=== PATIENT | female | born 1990 | race Hispanic/Latino ===

== ENCOUNTER 2021-06-06 10:19 | Outpatient (CLI) | payer MEDICAID ==
--- NOTE | 2021-06-06 12:14 | Vascular Lab Report ---
DUPLEX DOPPLER LOWER EXTREMITY VEINS, BILATERAL INDICATION / CLINICAL INFORMATION: EDEMA OF LOWER EXTREMITY /R60.0. TECHNIQUE: Duplex doppler imaging was performed through the veins of both lower extremities using venous nigel laverne and other maneuvers. COMPARISON: None available. FINDINGS: Right Common Femoral vein: Negative. Right Femoral vein: Negative. Right Popliteal vein: Negative. Right Calf veins: Negative. Left Common Femoral vein: Negative. Left Femoral vein: Negative. Left Popliteal vein: Negative. Left Calf veins: Negative. Additional findings: None. IMPRESSION: 1. No sonographic evidence for DVT in either lower extremity. Signer Name: Gregor Byrne MD Signed: 06/06/2021 12:10 PM Workstation Name: [id number]
== END 2021-06-06 10:20 | disposition home or self-care (01) ==
LOC: VAS 10:19
PROVIDERS: ATTEND Obstetrics & Gynecology
DX: R60.0 Localized edema (principal); O09.893 Supervision of other high risk pregnancies, third trimester; Z3A.38 38 weeks gestation of pregnancy
CPT/HCPCS: 93970

== ENCOUNTER 2021-06-11 11:52 | Inpatient (IN) | payer MEDICAID ==
[2021-06-11 13:41] LABS: Hematocrit 33.3 % (30.3-42.9); Hemoglobin 11.3 gm/dl (10.1-14.3); Mean Corpuscular HGB Conc 34 % (30-34); Mean Corpuscular Volume 91 fl (79-97); Platelet Count 244 K/mm3 (140-440); Red Blood Count 3.67 M/mm3 (3.65-5.03); Red Cell Distribution Width 13.5 % (13.2-15.2)
[2021-06-11 14:01] LABS: Alanine Aminotransferase 12 units/L (7-56); Uric Acid 3.5 mg/dL (3.5-7.6)
[2021-06-11] MEDS ORDERED: miSOPROStol 200 MCG TAB PR PRN (16:06)
[2021-06-11] MEDS ORDERED: ePHEDrine SULFATE 50 MG/1 ML INJ IV PRN ×2 (16:06→19:12)
[2021-06-11] MEDS ORDERED: CARBOPROST TROMETHAMINE 250 MCG/1 ML INJ IM PRN (16:06)
[2021-06-11] MEDS ORDERED: LIDOCAINE (2%) 20 MG/1 ML VIAL 20 ML MDV INFILTRATI ONE (16:06)
[2021-06-11] MEDS ORDERED: LOPERAMIDE 2 MG CAP PO PRN (16:06)
[2021-06-11] MEDS ORDERED: ONDANSETRON 4 MG/2 ML INJ IV PRN (16:06)
[2021-06-11] MEDS ORDERED: BUTORPHANOL 2 MG/1 ML INJ IV PRN ×2 (16:06)
[2021-06-11] MEDS ORDERED: TERBUTALINE 1 MG/1 ML INJ SUB-Q PRN (16:06)
[2021-06-11] MEDS ORDERED: METHYLERGONOVINE MALEATE 0.2 MG/ML VIAL IM PRN (16:06)
[2021-06-11] MEDS ORDERED: MINERAL OIL 30 ML ORAL LIQD PO PRN (16:06)
[2021-06-11] MEDS ORDERED: OXYTOCIN 10 UNIT/1 ML INJ IM PRN (16:06)
[2021-06-11] MEDS ORDERED: ACETAMINOPHEN 325 MG TAB PO PRN (16:06)
[2021-06-11] MEDS ORDERED: fentaNYL 100 MCG/2 ML INJ IV PRN (16:06)
--- NOTE | 2021-06-11 16:33 | History and Physical Report ---
History of Present Illness Date of examination: 06/11/21 Date of admission: 06/11/21 11:53 Chief complaint: Contractions History of present illness: EDC Confirmation: 06/10/2021 Past History : 1 Term Births: 0 Premature Births: 0 Living Children: 0 Para: 0 Mult. Births: 0 Prev : 0 Aborta: 0 Elect. Ab: 0 Spont. 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 Denies any history of surgical complications. Family History Summary: PGM - Has Family History of Hypertension - Entered On: 01/03/2021 PGM - Has Family History of Coronary Heart Disease - Entered On: 01/03/2021 MGF - Has Family History Coronary Heart Disease male < 55 - Entered On: Uncle - Has Family History Coronary Heart Disease male < 55 - Entered On: 01/03/2021 Social History: Patient is single Smoking History: Patient is a former smoker. Past Medical History Anesthesia Complications: negative Anemia: negative Autoimmune Disorder: negative Bleeding Disorder: negative Blood Transfusions: negative Breast Disease: negative Diabetes: negative Heart Disease: negative Hypertension: negative Hepatitis/Liver Disease: negative Kidney Disease/UTI: negative Neurologic/Epilepsy/Migraines: negative Phlebitis/Varicosities: negative Psychiatric: negative Pulmonary Disease/Asthma: negative Thyroid Disease: negative Hospitalizations: negative Surgery (Non-custody assistant): Tonsillectomy as child Denies any prior history of complications from anesthesia. Denies any history of surgical complications. Abnormal PAP: negative VIRAJ Exposure: negative Infertility: negative Uterine Anomaly: negative Uterine Surgery (not C/S): negative Other Gynecologic Problems: negative Social Hx: Patient is single Smoking History: Patient is a former smoker. Infection History Hx of STD: none HIV Risk Eval: no Hepatitis B Risk Eval: low risk Personal hx. of genital herpes: no Partner hx. of genital herpes: no Rash, Viral, or Febrile illness since last LMP? no Varicella/Chicken Pox Status: Previous Disease TB Risk: no Genetic History Congenital Heart Defect: Mom: no Dad: no Trae Disease: Mom: no Dad: no Thalassemia Mom: no Dad: no Neural Tube Defect Mom: no Dad: no Down's Syndrome Mom: no Dad: no Myron-Sachs Mom: no Dad: no Sickle Cell Disease/Trait Mom: no Dad: no Hemophilia Mom: no Dad: no Muscular Dystrophy Mom: no Dad: no Cystic Fibrosis Mom: no Dad: no [place] Chorea Mom: no Dad: no Mental Retardation Mom: no Dad: no Fragile X Mom: no Dad: no Other Genetic/Chromosomal Disorder Mom: no Dad: no Child w/other defect Mom: no Dad: no Enviromental Exposures Enviromental Exposures Reviewed Xray Exposure: no Medication, drug, or alcohol use since LMP: no Chemical/Other Exposure: no Exposure to Cat Liter: no Hx of Parvovirus (Fifth Disease): no Occupational Exposure to Children: none Active Medications (reviewed today): None Current Allergies (reviewed today): No known allergies Past History Past Medical History: other (See HPI) Past Surgical History: other (See HPI) GIFT MANAGER History: other (See HPI) Family/Genetic History: other (See HPI) Social history: other (See HPI) - Obstetrical History Expected Date of Delivery: 06/10/21 Actual Gestation: 40 Week(s) 1 Day(s) : 1 Para: 0 Hx # Term Pregnancies: 0 Number of Pregnancies: 0 Spontaneous Abortions: 0 Induced : 0 Number of Living Children: 0 Medications and Allergies Allergies Allergy/AdvReac Type Severity Reaction Status Date / Time No Known Allergies Allergy Unverified 06/11/21 12:04 Active Meds: Active Medications Acetaminophen (Acetaminophen 325 Mg Tab) 650 mg PO Q4H PRN PRN Reason: Pain, Mild (1-3) Butorphanol Tartrate (Butorphanol 2 Mg/1 Ml Inj) 1 mg IV Q2H PRN PRN Reason: Pain, Moderate(4-6) LABOR PAIN Butorphanol Tartrate (Butorphanol 2 Mg/1 Ml Inj) 2 mg IV Q2H PRN PRN Reason: Pain , Severe (7-10) Carboprost Tromethamine (Carboprost Tromethamine 250 Mcg/1 Ml Inj) 250 mcg IM ONCE PRN PRN Reason: Uterine Bleeding Ephedrine Sulfate (Ephedrine Sulfate 50 Mg/1 Ml Inj) 10 mg IV Q2M PRN PRN Reason: Hypotension Fentanyl (Fentanyl 100 Mcg/2 Ml Inj) 100 mcg IV Q2H PRN PRN Reason: Pain,Severe (7-10) LABOR PAIN Oxytocin/Sodium Chloride (Pitocin/Ns 30 Unit/500ml) 30 units in 500 mls @ 2 mls/hr IV TITR MERLY; Protocol Lactated Ringer's (Lactated Ringers) 1,000 mls @ 125 mls/hr IV DIRECT MERLY Oxytocin/Sodium Chloride (Pitocin/Ns 30 Unit/500ml) 30 units in 500 mls @ 40 mls/hr IV TITR MERLY; Protocol Loperamide HCl (Loperamide 2 Mg Cap) 2 mg PO ONCE PRN PRN Reason: give with Hemabate Methylergonovine Maleate (Methylergonovine Maleate 0.2 Mg/Ml Vial) 0.2 mg IM ONCE PRN PRN Reason: Uterine Bleeding Mineral Oil (Mineral Oil 30 Ml Oral Liqd) 30 ml PO QHS PRN PRN Reason: Constipation Misoprostol (Misoprostol 200 Mcg Tab) 800 mcg FL ONCE PRN PRN Reason: Uterine Bleeding Ondansetron HCl (Ondansetron 4 Mg/2 Ml Inj) 4 mg IV Q8H PRN PRN Reason: Nausea And Vomiting Oxytocin (Oxytocin 10 Unit/1 Ml Inj) 10 unit IM ONCE PRN PRN Reason: Uterine Bleeding Terbutaline Sulfate (Terbutaline 1 Mg/1 Ml Inj) 0.25 mg SUB-Q ONCE PRN PRN Reason: Hyperstimulation/Hypertonicity Review of Systems All systems: negative - Vital Signs Vital signs: Vital Signs Pulse BP 75 146/89 06/11/21 12:16 06/11/21 12:16 Temp Pulse Resp BP Pulse Ox 98.3 F 81 20 139/66 99 06/11/21 12:37 06/11/21 16:22 06/11/21 12:37 06/11/21 15:38 06/11/21 16:22 - Physical Exam Cardiovascular: Regular rate Lungs: Positive: Normal air movement Abdomen: Positive: normal appearance, soft Genitourinary (Female): Positive: normal external genitalia, normal perenium Vulva: both: normal Vagina: Positive: normal moisture Uterus: Positive: normal size - Obstetrical FHR: auscultation normal, category 1 Uterine Contraction Monitor Mode: External Cervical Dilatation: 1.5 Cervical Effacement Percentage: 90 station: 0 Uterine Contraction Frequency (min): 4-6 Uterine Contraction Pattern: Regular Uterine Tone Measurement Phase: Contraction Uterine Contraction Intensity: Moderate Results Result Diagrams: 06/11/21 13:11 06/11/21 13:11 Abnormal lab results 06/11/21 06/11/21 Range/Units 13:11 13:11 WBC 13.1 H (4.5-11.0) K/mm3 Creatinine 0.4 L (0.6-1.2) mg/dL All other labs normal. Assessment and Plan 31yo female pt presents to triage w/ c/o contractions q5min x 6 hours. Upon admission, FHT Cat 1 and chloe 4-6 min. SVE per tv production assistant is 1.5/70/-1. Pt's B/P's elevated 140's/80's. Gest HTN labs drawn and pt to ambulate x2hrs and recheck. SVE 1.5/90/0, BP's 130-150/60-80, admit augmentation for Gest. HTN, epidural at request. All pt questions addressed, orders entered into EMR, will reassess PRN. -Delphine BAUTISTA - Patient Problems (1) Gestational [-induced] hypertension without significant proteinuria, third trimester Current Visit: Yes Status: Acute Plan to address problem: Close monitoring of vital signs Mag Sulfate for B/Ps in severe range Pt currently asymptomatic for PreE (2) 40 weeks gestation of Current Visit: Yes Status: Acute
[2021-06-11 16:56] LABS: Bacteria,Urine 1+ /HPF (Negative); Bilirubin,Urine NEG (Negative); Blood,Urine SM (Negative); Color,Urine Yellow (Yellow); Mucus,Urine 1+ /HPF; Urobilinogen,Urine < 2.0 mg/dL (<2.0)
[2021-06-11] MEDS ORDERED: OXYTOCIN DRIP 30 UNITS/500 ML BAG IV SCH ×2 (17:00)
[2021-06-11] MEDS: LACTATED RINGERS 1,000 ML IV SCH ×2 (17:41→17:59)
[2021-06-11] MEDS ORDERED: NALOXONE 2 MG/2 ML INJ IV PRN (19:12)
--- NOTE | 2021-06-11 19:12 | Anesthesia Consultation ---
Anesthesia Consult and Med Hx Date of service: 06/11/21 - Airway Anesthetic Teeth Evaluation: Good ROM Head & Neck: Adequate Mental/Hyoid Distance: Adequate Mallampati Class: Class II Intubation Access Assessment: Probably Good - Pulmonary Exam CTA: Yes - Cardiac Exam Cardiac Exam: RRR - Pre-Operative Health Status ASA Pre-Surgery Classification: ASA3 Proposed Anesthetic Plan: Epidural - Pulmonary Hx Asthma: No COPD: No Hx Pneumonia: No - Cardiovascular System Hx Hypertension: Yes - Central Nervous System Hx Seizures: No Hx Psychiatric Problems: No - Endocrine Hx Renal Disease: No Hx End Stage Renal Disease: No Hx Hypothyroidism: No Hx Hyperthyroidism: No - Hematic Hx Sickle Cell Disease: No - Other Systems Hx Alcohol Use: No
--- NOTE | 2021-06-11 19:51 | Progress Note ---
Labor Epidural - Labor Epidural Start Time: 19:34 Stop Time: 19:41 Performed by:: TIFFANY MENDEZ Procedure: Patient is requesting epidural for labor pain. H&P, and labs reviewed. Procedure explained, questions answered, consent obtained. Patient in sitting position with blood pressure cuff and pulse ox on and working. Timeout performed immediately before start of procedure. Sterile chlorahexadine 0.5% prep/drape. 3 mL 1% lidocaine skin wheal at L[3]-L[4]. 17-gauge tuohy epidural needle advanced to [id number] with saline at [7] cm. 25-gauge spinal needle advanced until clear, free-flowing CSF. Intrathecal dexmedetomidine [5] mcg administered and needle removed. Epidural catheter advanced to [12] cm, negative aspiration for blood and csf, negative test dose 3 ml 1.5% lidocaine with epinephrine. Sterile sponge and tegaderm applied, followed by tape reinforcement. Patient tolerated procedure well.
[2021-06-11] MEDS ORDERED: fentaNYL-BUPIV 2 MCG/ML-0.125% 200 MCG/100 ML BAG EPIDURAL SCH (20:00)
--- NOTE | 2021-06-11 20:13 | Progress Note ---
Assessment and Plan Pt comfortable S/P epidural. SVE performed /0. Orders to start pit at 4mu/min at this time and titrate per protocol. Plan of care discussed w/ pt and RN at bedside, all questions addressed, will reassess PRN. - Patient Problems (1) Gestational [-induced] hypertension without significant proteinuri a, third trimester Current Visit: Yes Status: Acute (2) 40 weeks gestation of Current Visit: Yes Status: Acute Subjective - Subjective Date of service: 06/11/21 Interval history: EDC Confirmation: 06/10/2021 Past History : 1 Term Births: 0 Premature Births: 0 Living Children: 0 Para: 0 Mult. Births: 0 Prev : 0 Aborta: 0 Elect. Ab: 0 Spont. Ab: 0 Ectopics: 0 Risk Factors: Smoked Tobacco Use: Former smoker Cigarettes: Yes Smokeless Tobacco Use: Never Counseled to quit/cut down: yes Passive smoke exposure: no Drug use: no HIV high-risk behavior: no Alcohol use: no Exercise: no Seatbelt use: preg-dormitory counselor % Family History Risk Factors: Family History of [place] in females < 65 years old: no Family History of [place] in males < 55 years old: yes Dietary Counseling: pn yes Past Medical History: Reviewed history from 12/24/2014 and no changes required: Negative Past Medical History Past Surgical History: Tonsillectomy as child Denies any prior history of complications from anesthesia. Denies any history of surgical complications. Family History Summary: PGM - Has Family History of Hypertension - Entered On: 01/03/2021 PGM - Has Family History of Coronary Heart Disease - Entered On: 01/03/2021 MGF - Has Family History Coronary Heart Disease male < 55 - Entered On: 01/03/2021 Uncle - Has Family History Coronary Heart Disease male < 55 - Entered On: 01/03/2021 Social History: Patient is single Smoking History: Patient is a former smoker. Past Medical History Anesthesia Complications: negative Anemia: negative Autoimmune Disorder: negative Bleeding Disorder: negative Blood Transfusions: negative Breast Disease: negative Diabetes: negative Heart Disease: negative Hypertension: negative Hepatitis/Liver Disease: negative Kidney Disease/UTI: negative Neurologic/Epilepsy/Migraines: negative Phlebitis/Varicosities: negative Psychiatric: negative Pulmonary Disease/Asthma: negative Thyroid Disease: negative Hospitalizations: negative Surgery (Non-customer expert): Tonsillectomy as child Denies any prior history of complications from anesthesia. Denies any history of surgical complications. Abnormal PAP: negative VIRAJ Exposure: negative Infertility: negative Uterine Anomaly: negative Uterine Surgery (not C/S): negative Other Gynecologic Problems: negative Social Hx: Patient is single Smoking History: Patient is a former smoker. Infection History Hx of STD: none HIV Risk Eval: no Hepatitis B Risk Eval: low risk Personal hx. of genital herpes: no Partner hx. of genital herpes: no Rash, Viral, or Febrile illness since last LMP? no Varicella/Chicken Pox Status: Previous Disease TB Risk: no Genetic History Congenital Heart Defect: Mom: no Dad: no Trae Disease: Mom: no Dad: no Thalassemia Mom: no Dad: no Neural Tube Defect Mom: no Dad: no Down's Syndrome Mom: no Dad: no Myron-Sachs Mom: no Dad: no Sickle Cell Disease/Trait Mom: no Dad: no Hemophilia Mom: no Dad: no Muscular Dystrophy Mom: no Dad: no Cystic Fibrosis Mom: no Dad: no [place] Chorea Mom: no Dad: no Mental Retardation Mom: no Dad: no Fragile X Mom: no Dad: no Other Genetic/Chromosomal Disorder Mom: no Dad: no Child w/other defect Mom: no Dad: no Enviromental Exposures Enviromental Exposures Reviewed Xray Exposure: no Medication, drug, or alcohol use since LMP: no Chemical/Other Exposure: no Exposure to Cat Liter: no Hx of Parvovirus (Fifth Disease): no Occupational Exposure to Children: none Active Medications (reviewed today): None Current Allergies (reviewed today): No known allergies Patient reports: no new complaints Objective - Vital Signs Vital Signs: Vital Signs - 12hr 06/11/21 06/11/21 06/11/21 12:16 12:17 12:22 Temperature Pulse Rate 75 82 79 Respiratory Rate Blood Pressure 146/89 O2 Sat by Pulse 98 98 Oximetry O2 Sat by Pulse Oximetry [ Anterior Bilateral Throughout] 06/11/21 06/11/21 06/11/21 12:27 12:32 12:37 Temperature 98.3 F Pulse Rate 71 83 73 Respiratory 20 Rate Blood Pressure O2 Sat by Pulse 98 98 98 Oximetry O2 Sat by Pulse Oximetry [ Anterior Bilateral Throughout] 06/11/21 06/11/21 06/11/21 12:38 12:42 12:47 Temperature Pulse Rate 73 71 84 Respiratory Rate Blood Pressure 144/78 O2 Sat by Pulse 99 98 Oximetry O2 Sat by Pulse Oximetry [ Anterior Bilateral Throughout] 06/11/21 06/11/21 06/11/21 12:52 12:57 13:02 Temperature Pulse Rate 85 71 87 Respiratory Rate Blood Pressure O2 Sat by Pulse 99 99 99 Oximetry O2 Sat by Pulse Oximetry [ Anterior Bilateral Throughout] 06/11/21 06/11/21 06/11/21 13:07 15:37 15:38 Temperature Pulse Rate 80 68 70 Respiratory Rate Blood Pressure 155/84 139/66 O2 Sat by Pulse 99 99 Oximetry O2 Sat by Pulse Oximetry [ Anterior Bilateral Throughout] 06/11/21 06/11/21 06/11/21 15:42 15:47 15:52 Temperature Pulse Rate 72 73 73 Respiratory Rate Blood Pressure O2 Sat by Pulse 98 98 97 Oximetry O2 Sat by Pulse Oximetry [ Anterior Bilateral Throughout] 06/11/21 06/11/21 06/11/21 15:57 16:02 16:07 Temperature Pulse Rate 68 74 74 Respiratory Rate Blood Pressure O2 Sat by Pulse 98 98 98 Oximetry O2 Sat by Pulse Oximetry [ Anterior Bilateral Throughout] 06/11/21 06/11/21 06/11/21 16:12 16:17 16:22 Temperature Pulse Rate 78 82 81 Respiratory Rate Blood Pressure O2 Sat by Pulse 99 98 99 Oximetry O2 Sat by Pulse Oximetry [ Anterior Bilateral Throughout] 06/11/21 06/11/21 06/11/21 16:27 16:45 16:47 Temperature Pulse Rate 75 77 78 Respiratory Rate Blood Pressure 145/77 O2 Sat by Pulse 99 98 Oximetry O2 Sat by Pulse Oximetry [ Anterior Bilateral Throughout] 06/11/21 06/11/21 06/11/21 16:50 16:55 17:00 Temperature Pulse Rate 77 82 91 H Respiratory Rate Blood Pressure O2 Sat by Pulse 98 99 98 Oximetry O2 Sat by Pulse Oximetry [ Anterior Bilateral Throughout] 06/11/21 06/11/21 06/11/21 17:05 17:10 17:15 Temperature Pulse Rate 89 89 71 Respiratory Rate Blood Pressure O2 Sat by Pulse 99 98 99 Oximetry O2 Sat by Pulse Oximetry [ Anterior Bilateral Throughout] 06/11/21 06/11/21 06/11/21 17:20 17:25 17:30 Temperature Pulse Rate 80 89 85 Respiratory Rate Blood Pressure O2 Sat by Pulse 98 99 98 Oximetry O2 Sat by Pulse Oximetry [ Anterior Bilateral Throughout] 06/11/21 06/11/21 06/11/21 17:35 17:40 17:44 Temperature Pulse Rate 81 77 Respiratory 18 Rate Blood Pressure O2 Sat by Pulse 98 98 Oximetry O2 Sat by Pulse Oximetry [ Anterior Bilateral Throughout] 06/11/21 06/11/21 06/11/21 17:45 17:49 17:50 Temperature Pulse Rate 79 78 Respiratory Rate Blood Pressure O2 Sat by Pulse 98 98 Oximetry O2 Sat by Pulse 100 Oximetry [ Anterior Bilateral Throughout] 06/11/21 06/11/21 06/11/21 17:55 18:00 18:05 Temperature Pulse Rate 101 H 81 97 H Respiratory Rate Blood Pressure 147/82 O2 Sat by Pulse 98 96 97 Oximetry O2 Sat by Pulse Oximetry [ Anterior Bilateral Throughout] 06/11/21 06/11/21 06/11/21 18:10 18:15 18:20 Temperature Pulse Rate 85 79 83 Respiratory Rate Blood Pressure O2 Sat by Pulse 97 97 97 Oximetry O2 Sat by Pulse Oximetry [ Anterior Bilateral Throughout] 06/11/21 06/11/21 06/11/21 18:25 18:30 18:35 Temperature Pulse Rate 87 89 76 Respiratory Rate Blood Pressure O2 Sat by Pulse 96 96 97 Oximetry O2 Sat by Pulse Oximetry [ Anterior Bilateral Throughout] 06/11/21 06/11/21 06/11/21 18:40 18:45 18:50 Temperature Pulse Rate 69 85 66 Respiratory Rate Blood Pressure O2 Sat by Pulse 96 99 98 Oximetry O2 Sat by Pulse Oximetry [ Anterior Bilateral Throughout] 06/11/21 06/11/21 06/11/21 18:55 19:00 19:05 Temperature Pulse Rate 80 86 92 H Respiratory Rate Blood Pressure 154/82 O2 Sat by Pulse 98 99 98 Oximetry O2 Sat by Pulse Oximetry [ Anterior Bilateral Throughout] 06/11/21 06/11/21 06/11/21 19:10 19:15 19:24 Temperature Pulse Rate 84 86 Respiratory Rate Blood Pressure O2 Sat by Pulse 98 99 Oximetry O2 Sat by Pulse 100 Oximetry [ Anterior Bilateral Throughout] 06/11/21 06/11/21 06/11/21 19:26 19:29 19:34 Temperature Pulse Rate 75 77 100 H Respiratory Rate Blood Pressure 154/90 O2 Sat by Pulse 98 98 Oximetry O2 Sat by Pulse Oximetry [ Anterior Bilateral Throughout] 06/11/21 06/11/21 06/11/21 19:39 19:44 19:49 Temperature Pulse Rate 97 H 96 H 86 Respiratory Rate Blood Pressure O2 Sat by Pulse 99 99 99 Oximetry O2 Sat by Pulse Oximetry [ Anterior Bilateral Throughout] 06/11/21 06/11/21 06/11/21 19:54 19:58 19:59 Temperature Pulse Rate 86 91 H 94 H Respiratory Rate Blood Pressure 148/88 O2 Sat by Pulse 99 99 Oximetry O2 Sat by Pulse Oximetry [ Anterior Bilateral Throughout] 06/11/21 06/11/21 20:04 20:09 Temperature Pulse Rate 89 70 Respiratory Rate Blood Pressure O2 Sat by Pulse 99 98 Oximetry O2 Sat by Pulse Oximetry [ Anterior Bilateral Throughout] - Exam Cardiovascular: Regular rate Lungs: Normal air movement Abdomen: Present: normal appearance, soft Vulva: both: normal Uterus: Present: normal FHR: category 1 Uterine Contraction Monitor Mode: External Cervical Dilatation: 2 Cervical Effacement Percentage: 100 station: 0 Uterine Contraction Frequency (min): 3-6 Uterine Contraction Pattern: Regular Uterine Tone Measurement Phase: Contraction Uterine Contraction Intensity: Moderate - Labs Labs: Abnormal Labs 06/11/21 06/11/21 06/11/21 13:11 13:11 Unknown WBC 13.1 H Creatinine 0.4 L Urine WBC (Auto) 7.0 H Laboratory Results - last 24 hr 06/11/21 06/11/21 06/11/21 13:11 13:11 15:11 WBC 13.1 H RBC 3.67 Hgb 11.3 Hct 33.3 MCV 91 MCH 31 MCHC 34 RDW 13.5 Plt Count 244 Creatinine 0.4 L Estimated GFR > 60 Uric Acid 3.5 AST 16 ALT 12 Lactate Dehydrogenase 160 Urine Color Urine Turbidity Urine pH Ur Specific [place] Urine Protein Urine Glucose (UA) Urine Ketones Urine Blood Urine Nitrite Urine Bilirubin Urine Urobilinogen Ur Leukocyte Esterase Urine WBC (Auto) Urine RBC (Auto) U Epithel Cells (Auto) Urine Bacteria (Auto) Urine Mucus Syphilis IgG Antibody Nonreactive Blood Type Antibody Screen 06/11/21 06/11/21 15:11 Unknown WBC RBC Hgb Hct MCV MCH MCHC RDW Plt Count Creatinine Estimated GFR Uric Acid AST ALT Lactate Dehydrogenase Urine Color Yellow Urine Turbidity Hazy Urine pH 5.0 Ur Specific [place] 1.018 Urine Protein 30 mg/dl Urine Glucose (UA) 50 Urine Ketones Tr Urine Blood Sm Urine Nitrite Neg Urine Bilirubin Neg Urine Urobilinogen < 2.0 Ur Leukocyte Esterase Neg Urine WBC (Auto) 7.0 H Urine RBC (Auto) 2.0 U Epithel Cells (Auto) 9.0 Urine Bacteria (Auto) 1+ Urine Mucus 1+ Syphilis IgG Antibody Blood Type B POSITIVE Antibody Screen Negative
--- NOTE | 2021-06-11 22:48 | Event Note ---
Date: 06/11/21 Pt SROM 2029 with light mec, FHT Cat 1 w/ early decels and comfortable. SVE @ 2200 6.5/100/0, moderate variability. Pitocin infusion 2mu/min at this time. Will reassess PRN
--- NOTE | 2021-06-12 05:29 | Procedure Note ---
OB Delivery Note - Delivery Date of Delivery: 06/12/21 Subassembler: [facility] (Romario Escamilla [facility]) Estimated blood loss: 300cc - Vaginal Delivery presentation: vertex Delivery position: OA (BRENDA) Intrapartum events: meconium (Light) Delivery induction: none Delivery augmentation: pitocin Delivery monitor: external FHT, external uterine Route of delivery: Delivery placenta: spontaneous Delivery cord: nuchal cord, 3 umbilical vessels Episiotomy: none Delivery laceration: 1st degree, other (Bilat periurethral) Delivery repair: vicryl Anesthesia: epidural Delivery comments: Male infant birthed over intact perineum with nuchal cord x1, delivered through in somersault and placed to maternal abd. Cord clamped and cut and infant taken to warmer for stimulation and bulb suctioning. Placenta birthed spontaneously and intact, 3 vessel cord noted. Bilateral Periurethral and 1st degree laceration noted and repaired and laceration hemostatic. Fundus firm and lochia light. All counts correct , mother and baby LDR stable. - A at 1 minute: 8 at 5 minutes: 9 Gender: Male (Edvin, 7#11)
[2021-06-12] MEDS ORDERED: IBUPROFEN 600 MG TAB PO SCH (06:58)
[2021-06-12] MEDS ORDERED: IBUPROFEN 800 MG TAB ONE (07:09)
[2021-06-12] MEDS ORDERED: ONDANSETRON 4 MG/2 ML INJ IV PRN (08:00)
[2021-06-12] MEDS ORDERED: PROMETHAZINE 25 MG TAB PO PRN (08:00)
[2021-06-12] MEDS ORDERED: PROMETHAZINE 25 MG RECT SUPP PR PRN (08:00)
[2021-06-12] MEDS ORDERED: BENZOCAINE/MENTHOL 20/0.5% TOP SPRAY 56 GM TP PRN (08:00)
[2021-06-12] MEDS ORDERED: LANOLIN/ZINC/DIMETHICONE (LANSINOH) 7 GM TP PRN (08:00)
[2021-06-12] MEDS ORDERED: diphenhydrAMINE 25 MG CAP PO PRN (08:00)
[2021-06-12] MEDS ORDERED: WITCH HAZEL/ GLYCERIN PAD TP PRN (08:00)
[2021-06-12] MEDS ORDERED: KETOROLAC 30 MG/1 ML INJ IV PRN (08:00)
--- NOTE | 2021-06-12 08:10 | Progress Note ---
Assessment and Plan Pt denies SAVAGE, vision changes, and pain at this time. Reports ambulating, voiding, and eating without difficulty. SO present and supportive at bedside. POC d/w pt. Pt verbalizes understanding. Dr. Chase made aware. - Patient Problems (1) (normal spontaneous vaginal delivery) Current Visit: Yes Status: Acute Plan to address problem: continue pathway monitor closely for ssx of worsening status Subjective - Subjective Date of service: 06/12/21 Principal diagnosis: PP s/p Patient reports: appetite normal, voiding normally, pain well controlled, ambulating normally : doing well Objective - Vital Signs Latest vital signs: Vital Signs Temp Pulse Resp BP Pulse Ox Pulse Ox 06/12/21 08:04 113 H 98 06/12/21 07:59 114 H 97 06/12/21 07:54 108 H 97 06/12/21 07:49 103 H 98 06/12/21 07:44 102 H 98 06/12/21 07:39 103 H 99 06/12/21 07:34 109 H 98 06/12/21 07:29 96 H 98 06/12/21 07:26 99.3 F 98 H 142/78 06/12/21 07:24 94 H 98 06/12/21 07:19 98 H 97 06/12/21 07:17 97 H 141/77 06/12/21 07:14 98 H 141/81 98 06/12/21 07:11 87 146/90 06/12/21 07:09 100 H 98 06/12/21 07:04 92 H 98 06/12/21 06:56 92 H 145/89 06/12/21 06:53 94 H 98 06/12/21 06:48 102 H 98 06/12/21 06:43 98 H 98 06/12/21 06:41 101 H 142/98 06/12/21 06:38 101 H 99 06/12/21 06:33 98 H 98 06/12/21 06:28 96 H 99 06/12/21 06:26 95 H 136/87 06/12/21 06:23 105 H 98 06/12/21 06:18 110 H 97 06/12/21 06:13 116 H 99 06/12/21 06:11 112 H 130/80 06/12/21 06:10 99.1 F 10/18/21 06:08 78 100 10/18/21 05:55 98 H 99 10/18/21 05:54 95 H 144/69 10/18/21 05:50 103 H 99 1018/21 05:45 116 H 99 1018/21 05:43 116 H 157/84 1018/21 05:40 124 H 98 18/21 05:35 115 H 98 18/21 05:30 105 H 98 18/21 05:27 110 H 138/70 1018/21 05:25 116 H 98 18/21 05:20 115 H 98 18/21 05:15 117 H 98 18/21 05:10 115 H 98 18/21 05:05 112 H 98 18/21 05:00 122 H 98 18/21 04:55 147 H 90 06/12/21 04:50 100 H 97 18/21 04:45 95 H 98 18/21 04:40 90 98 18/21 04:38 60 88 1018/21 04:35 128 H 97 1018/21 04:33 64 88 1018/21 04:30 112 H 99 1018/21 04:27 79 94 1018/21 04:25 96 H 99 18/21 04:20 115 H 100 18/21 04:15 98 H 99 18/21 04:09 88 99 1018/21 04:08 103 H 88 1018/21 04:04 95 H 99 1018/21 03:59 101 H 99 1018/21 03:57 109 H 141/82 1018/21 03:54 110 H 99 10/18/21 03:49 105 H 98 1018/21 03:44 101 H 98 1018/21 03:43 117 H 149/113 1018/21 03:39 106 H 97 1018/21 03:34 101 H 99 10/18/21 03:31 99.1 F 1018/21 03:29 105 H 100 10/18/21 03:28 103 H 144/86 10/18/21 03:24 108 H 99 10/18/21 03:19 118 H 99 1018/21 03:14 104 H 99 10/18/21 03:13 108 H 135/81 1018/21 03:09 115 H 97 18/21 03:04 110 H 99 18/21 02:59 108 H 99 21 02:58 100 H 137/65 18/21 02:54 112 H 99 21 02:49 94 H 98 18/21 02:44 91 H 98 1821 02:43 91 H 134/79 1821 02:39 88 98 18/21 02:34 85 98 18/21 02:29 88 98 18/21 02:28 86 134/73 18/21 02:24 86 98 06/12/21 02:19 88 98 06/12/21 02:14 89 99 21 02:12 87 136/72 06/12/21 02:09 90 98 06/12/21 02:04 88 99 06/12/21 01:59 93 H 99 06/12/21 01:57 95 H 132/74 06/12/21 01:54 105 H 99 18/21 01:49 90 99 18/21 01:44 89 98 18/21 01:42 93 H 150/82 06/12/21 01:39 94 H 98 18/21 01:34 87 99 18/21 01:29 88 157/97 100 18/21 01:24 91 H 99 06/12/21 01:20 98.9 F 06/12/21 01:19 85 99 06/12/21 01:14 94 H 98 1821 01:13 98 H 140/97 18/21 01:09 93 H 98 18/21 01:04 100 H 98 18/21 00:59 88 100 18/21 00:57 88 148/84 18/21 00:54 84 99 18/21 00:49 95 H 99 18/21 00:44 113 H 99 18/21 00:43 84 142/80 1018/21 00:39 86 100 18/21 00:34 83 99 18/21 00:29 90 99 18/21 00:27 83 143/74 18/21 00:24 111 H 98 18/21 00:19 107 H 100 1821 00:14 87 145/71 99 1821 00:09 87 99 1821 00:04 96 H 98 1721 23:59 103 H 99 21 23:57 90 137/79 1721 23:54 87 98 1721 23:49 82 99 21 23:44 82 137/84 100 06/11/21 23:39 75 98 1721 23:34 79 99 06/11/21 23:29 97 H 99 06/11/21 23:28 84 134/65 06/11/21 23:24 83 100 06/11/21 23:19 85 99 06/11/21 23:14 76 99 06/11/21 23:13 81 135/79 06/11/21 23:09 74 99 06/11/21 23:04 73 99 06/11/21 23:00 98.8 F 06/11/21 22:59 84 135/76 99 06/11/21 22:54 81 99 06/11/21 22:49 87 99 17 22:44 79 125/70 98 06/11/21 22:42 77 149/77 06/11/21 22:39 71 98 06/11/21 22:34 69 99 06/11/21 22:29 89 98 06/11/21 22:27 96 H 115/68 06/11/21 22:24 89 99 06/11/21 22:19 89 99 06/11/21 22:14 98 H 99 06/11/21 22:13 92 H 134/70 1721 22:09 104 H 100 1721 22:04 97 H 100 1721 21:59 78 98 1721 21:57 94 H 146/67 1721 21:54 72 99 1721 21:49 66 100 1721 21:44 65 98 1721 21:43 62 140/70 1721 21:39 72 98 1721 21:34 71 99 1721 21:29 66 98 1721 21:28 68 127/76 17/21 21:24 68 99 17/21 21:19 74 98 17/21 21:14 80 99 17/21 21:12 72 134/74 17/21 21:09 69 99 17/21 21:04 88 99 17/21 20:59 70 99 17/21 20:58 68 143/72 17/21 20:54 72 99 17/21 20:49 75 99 17/21 20:44 72 99 17/21 20:42 75 138/86 17/21 20:39 79 99 17/21 20:34 78 99 17/21 20:29 81 99 17/21 20:27 71 144/72 17/21 20:24 73 98 17/21 20:19 70 99 17/21 20:14 71 155/77 99 17/21 20:09 70 98 17/21 20:04 89 99 17/21 19:59 94 H 99 17/21 19:58 91 H 148/88 17/21 19:54 86 99 17/21 19:49 86 99 17/21 19:44 96 H 99 17/21 19:39 97 H 99 17/21 19:34 100 H 98 17/21 19:29 77 98 17/21 19:26 75 154/90 17/21 19:24 86 99 17/21 19:15 100 1721 19:10 84 98 1721 19:05 92 H 98 17/21 19:00 86 154/82 99 17/21 18:55 80 98 17/21 18:50 66 98 17/21 18:45 85 99 17/21 18:40 69 96 17/21 18:35 76 97 17/21 18:30 89 96 17/21 18:25 87 96 17/21 18:20 83 97 17/21 18:15 79 97 17/21 18:10 85 97 17/21 18:05 97 H 97 17/21 18:00 81 147/82 96 10/17/21 17:55 101 H 98 06/11/21 17:50 78 98 06/11/21 17:49 100 06/11/21 17:45 79 98 06/11/21 17:44 18 06/11/21 17:40 77 98 06/11/21 17:35 81 98 06/11/21 17:30 85 98 06/11/21 17:25 89 99 06/11/21 17:20 80 98 06/11/21 17:15 71 99 06/11/21 17:10 89 98 06/11/21 17:05 89 99 06/11/21 17:00 91 H 98 06/11/21 16:55 82 99 06/11/21 16:50 77 98 06/11/21 16:47 78 145/77 06/11/21 16:45 77 98 06/11/21 16:27 75 99 06/11/21 16:22 81 99 06/11/21 16:17 82 98 06/11/21 16:12 78 99 06/11/21 16:07 74 98 06/11/21 16:02 74 98 06/11/21 15:57 68 98 06/11/21 15:52 73 97 06/11/21 15:47 73 98 06/11/21 15:42 72 98 06/11/21 15:38 70 139/66 06/11/21 15:37 68 155/84 99 06/11/21 13:07 80 99 06/11/21 13:02 87 99 06/11/21 12:57 71 99 06/11/21 12:52 85 99 06/11/21 12:47 84 98 06/11/21 12:42 71 99 06/11/21 12:38 73 144/78 06/11/21 12:37 98.3 F 73 20 98 06/11/21 12:32 83 98 06/11/21 12:27 71 98 06/11/21 12:22 79 98 06/11/21 12:17 82 98 06/11/21 12:16 75 146/89 Intake and Output 06/11/21 06/12/21 06/12/21 23:59 07:59 15:59 Intake Total 37.5 Balance 37.5 Intake: IV 37.5 Lactated Ringers 1,000 ml 37.5 @ 125 mls/hr IV DIRECT [facility] Rx#:[id number] - Exam Breasts: Present: normal Cardiovascular: Present: Regular rate Lungs: Present: Normal air movement Abdomen: Present: normal appearance, soft Vulva: both: normal Uterus: Present: normal, firm, fundal height below umbilicus Extremities: Present: edema (3+ pitting BLE) - Labs Labs: Abnormal lab results 06/11/21 06/11/21 06/11/21 Range/Units 13:11 13:11 Unknown WBC 13.1 H (4.5-11.0) K/mm3 Creatinine 0.4 L (0.6-1.2) mg/dL Urine WBC (Auto) 7.0 H (0.0-6.0) /HPF
[2021-06-12] MEDS: DOCUSATE SODIUM 100 MG CAP PO SCH ×2 (11:33→22:06)
[2021-06-12] MEDS: IBUPROFEN 800 MG TAB PO SCH ×2 (11:33→18:10)
[2021-06-12] MEDS: PRENATAL VIT27-FE FUMARATE-FOLIC ACID VIT TAB PO SCH (11:33)
--- NOTE | 2021-06-12 16:53 | Post Anesthesia Evaluation ---
- Post Anesthesia Evaluation Patient Participated: Yes Airway Patent: Yes Stable Respiratory Function: Yes Nausea/Vomiting: No Temp > 96.8F: Yes Pain Manageable: Yes Adequeate Hydration: Yes Anesthesia Complications: No Block Receding Appropriately: Yes
[2021-06-12 18:08] LABS: Hemoglobin 9.5 gm/dl (10.1-14.3)
[2021-06-12] MEDS ORDERED: MAGNESIUM HYDROXIDE (MOM) ORAL LIQD UDC PO PRN (22:00)
[2021-06-12] MEDS: ACETAMINOPHEN 325 MG TAB PO PRN (22:06)
[2021-06-13] MEDS: ACETAMINOPHEN 325 MG TAB PO PRN ×2 (02:26→10:09)
[2021-06-13] MEDS ORDERED: TETANUS,DIPH,PERTUSS(ACELL) VACCINE 0.5 ML SYRINGE IM ONE (05:33)
[2021-06-13] MEDS: IBUPROFEN 800 MG TAB PO SCH ×3 (05:57→12:17)
--- NOTE | 2021-06-13 07:55 | Discharge Summary ---
Providers - Providers Date of Admission: 06/11/21 11:53 Date of discharge: 06/13/21 (Pt doing well. ) Attending physician: SYDNIE BLAKELY Primary care physician: SYDNIE BLAKELY Hospitalization Reason for admission: other (Augmentation of labor, gHTN) Delivery: Episiotomy: none Laceration: 1st degree (Periurethral) Other procedures: none complications: none Discharge diagnosis: IUP at term delivered (gHTN, no mag infusion. ) baby: male Pertinent studies: Pt presented in labor and was found to have elevated blood pressures. Was diagnosed with gHTN. Was not on mag infusion during and after delivery. Blood pressure ranges have been 120-140's/60-80's. Pt denies SAVAGE, blurred vision, spots before her eyes, chest pain, shortness of breath, and upper abdominal pain. We discussed how to take a blood pressure at home and when to call the clinical consultant provider with questions and concerns. Hospital course: S: Pt doing well. Ambulating, voiding, and passing flatus okay. BC: Condoms. O: VSS. Adequate I&O's. Fundus firm, minimal bleeding noted. A: 31 y.o. s/p @ term, gHTN. In good condition and can be discharged home. P: Discharge home with instructions. Pt to schedule blood pressure check and son's circumcision in the office in 1 week. Disposition: 30 STILL A PATIENT Plan - Discharge Medications Prescriptions: Docusate Sodium [Colace] 100 mg PO BID PRN #60 capsule PRN Reason: Constipation Lidocain2.5%/Prilocai2.5% [Emla] 1 applic TP ONCE #1 tube Ferrous Sulfate [Feosol 325 MG tab] 325 mg PO QDAY #30 tablet - Provider Discharge Summary Activity: routine, no sex for 6 weeks, no heavy lifting 4 weeks, no strenuous exercise Diet: routine Instructions: routine Additional instructions: [] Smoking cessation referral if applicable(refer to patient education folder for contact #) [] Refer to [facility] Booklet Call your doctor immediately for: * Fever > 100.5 * Heavy vaginal bleeding ( >1 pad per hour) * Severe persistent headache * Shortness of breath * Reddened, hot, painful area to leg or breast * Drainage or odor from incision. * Keep incision clean and dry at all times and follow doctor's instructions regarding bathing/showering Congratulations on your baby boy! Please schedule his circumcision and your blood pressure check in the office in 1 week. You have been given a prescription for EMLA cream. Please do not use it at home but bring it with you to your son's circumcision appointment. Should you have any questions or concerns after your are discharged, please do not hesitate to call the office at [phone]. Taking your blood pressure at home Please take your blood pressure at least once daily Taking your blood pressure with a wrist monitor: 1. Put the blood pressure cuff on your wrist. Make sure it is not on the bone of your wrist. 2. Sit with your legs uncrossed and feet flat on the ground. 3. Wait 5-10 minutes before taking your blood pressure. 4. If you wrist monitor requires you to put your arm across your chest: After 5-10 minutes, put your arm across your chest like you are about to say the pledge of allegiance. Taking your blood pressure with a cuff monitor: 1. Put the blood pressure cuff on your arm. 2. Sit with your legs uncrossed and feet flat on the ground. Make sure your arm is relaxed on a table or your kitchen table and bent at a 90 degree angle. 3. After 5-10 minutes push the button to take your blood pressure. While you are at home, if you experience a headache, blurred vision, spots before your eyes, chest pain, shortness of breath, and pain in your upper belly, and/or your blood pressure is 140/90 or greater please call the on-call provider immediately. - Follow up plan Follow up: SYDNIE BLAKELY MD [Primary Care Provider] - 7 Days
[2021-06-13] MEDS: DOCUSATE SODIUM 100 MG CAP PO SCH (10:09)
[2021-06-13] MEDS: PRENATAL VIT27-FE FUMARATE-FOLIC ACID VIT TAB PO SCH (10:24)
[2021-06-13 12:38] VITALS: BP 143/80
== END 2021-06-13 15:40 | disposition home or self-care (01) | DRG 775 ==
LOC: TRG 11:52 → APU 11:53 → TRG 16:11 → LD 16:38 → OB 06-12 10:58
PROVIDERS: ADMIT Obstetrics & Gynecology; ATTEND Obstetrics & Gynecology
PROC: 10E0XZZ Delivery of Products of Conception, External Approach (ICD-10-PCS; principal; 2021-06-12)
PROC: 0HQ9XZZ Repair Perineum Skin, External Approach (ICD-10-PCS; 2021-06-12)
PROC: 3E0R3BZ Introduction of Anesthetic Agent into Spinal Canal, Percutaneous Approach (ICD-10-PCS; 2021-06-12)
PROC: 00HU33Z Insertion of Infusion Device into Spinal Canal, Percutaneous Approach (ICD-10-PCS; 2021-06-12)
PROC: 3E0234Z Introduction of Serum, Toxoid and Vaccine into Muscle, Percutaneous Approach (ICD-10-PCS; 2021-06-13)
DX: O13.4 Gestational [pregnancy-induced] hypertension without significant proteinuria, complicating childbirth (principal); O77.0 Labor and delivery complicated by meconium in amniotic fluid; Z3A.40 40 weeks gestation of pregnancy; Z37.0 Single live birth; Z20.822 Contact with and (suspected) exposure to COVID-19; O69.81X0 Labor and delivery complicated by cord around neck, without compression, not applicable or unspecified; O70.0 First degree perineal laceration during delivery; Z23 Encounter for immunization
CPT/HCPCS: 36415; 81001; 82565; 83615; 84450; 84460; 84550; 85014; 85018; 85027; 86592; 86850; 86900; 86901; G0378; J0595; J1885; J2590; J7120; U0003

== ENCOUNTER 2021-06-14 17:33 | Inpatient (IN) | payer MEDICAID ==
[2021-06-14] MEDS ORDERED: ONDANSETRON 4 MG/2 ML INJ IV PRN (17:36)
--- NOTE | 2021-06-14 17:50 | History and Physical Report ---
History of Present Illness Date of examination: 06/14/21 Date of admission: 06/14/21 Chief complaint: elevated blood pressure History of present illness: Pt was d/c home on yesterday PPD #1 s/p that was complicated by gestational hypertension. She was not d/c home on bp meds as her blood pressures at discharge were in the mild to normal ranges. She called the office today c/o having elevation of blood pressures of 150s/90s. Pt denies any SAVAGE, or blurry vision or c/o RUQ pain but does c/o having "gas". Pt advised to come in for direct admission, magnesium sulfate, and bp management and to rule out pp PreE vs continued gestational hypertension that is moving into the severe range. All questions were addressed and and answered and pt enroute to the hospital. Risk Factors: Smoked Tobacco Use: Former smoker Cigarettes: Yes Smokeless Tobacco Use: Never Counseled to quit/cut down: yes Passive smoke exposure: no Drug use: no HIV high-risk behavior: no Alcohol use: no Exercise: no Seatbelt use: preg-diet counselor % Family History Risk Factors: Family History of WA in females < 65 years old: no Family History of WA in males < 55 years old: yes Dietary Counseling: pn yes Past Medical History: Reviewed history from 12/24/2014 and no changes required: Negative Past Medical History Past Surgical History: Tonsillectomy as child Denies any prior history of complications from anesthesia. Denies any history of surgical complications. Family History Summary: PGM - Has Family History of Hypertension - Entered On: 01/03/2021 PGM - Has Family History of Coronary Heart Disease - Entered On: 01/03/2021 MGF - Has Family History Coronary Heart Disease male < 55 - Entered On: 01/03/2021 Uncle - Has Family History Coronary Heart Disease male < 55 - Entered On: 01/03/2021 Social History: Patient is single Smoking History: Patient is a former smoker. 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 Denies any history of surgical complications. Abnormal PAP: negative VIRAJ Exposure: negative Infertility: negative Uterine Anomaly: negative Uterine Surgery (not C/S): negative Other Gynecologic Problems: negative Social Hx: Patient is single Smoking History: Patient is a former smoker. Infection History Hx of STD: none HIV Risk Eval: no Hepatitis B Risk Eval: low risk Personal hx. of genital herpes: no Partner hx. of genital herpes: no Rash, Viral, or Febrile illness since last LMP? no Varicella/Chicken Pox Status: Previous Disease TB Risk: no Genetic History Congenital Heart Defect: Mom: no Dad: no Trae Disease: Mom: no Dad: no Thalassemia Mom: no Dad: no Neural Tube Defect Mom: no Dad: no Down's Syndrome Mom: no Dad: no Myron-Sachs Mom: no Dad: no Sickle Cell Disease/Trait Mom: no Dad: no Hemophilia Mom: no Dad: no Muscular Dystrophy Mom: no Dad: no Cystic Fibrosis Mom: no Dad: no [place] Chorea Mom: no Dad: no Mental Retardation Mom: no Dad: no Fragile X Mom: no Dad: no Other Genetic/Chromosomal Disorder Mom: no Dad: no Child w/other defect Mom: no Dad: no Enviromental Exposures Enviromental Exposures Reviewed Xray Exposure: no Medication, drug, or alcohol use since LMP: no Chemical/Other Exposure: no Exposure to Cat Liter: no Hx of Parvovirus (Fifth Disease): no Occupational Exposure to Children: none Active Medications (reviewed today): None Current Allergies (reviewed today):NKDA Past History Past Medical History: no pertinent history Past Surgical History: no surgical history Family/Genetic History: other (SEE HPI) Social history: other (SEE HPI) - Obstetrical History : 1 Number of Living Children: 1 Medications and Allergies Allergies Allergy/AdvReac Type Severity Reaction Status Date / Time No Known Allergies Allergy Unverified 06/11/21 12:04 Home Medications Medication Instructions Recorded Confirmed Last Taken Type Docusate Sodium [Colace] 100 mg PO BID PRN #60 capsule 06/13/21 Unknown Rx Ferrous Sulfate [Feosol 325 MG tab] 325 mg PO QDAY #30 tablet 06/13/21 Unknown Rx Ibuprofen [Motrin] 800 mg PO Q8HR PRN #30 tablet 06/13/21 Unknown Rx Lidocain2.5%/Prilocai2.5% [Emla] 1 applic TP ONCE #1 tube 06/13/21 Unknown Rx Results All other labs normal. Assessment and Plan - Patient Problems (1) hypertension Status: Acute Plan to address problem: -ADMIT -MONITOR BP -MAGNESIUM SULFATE INFUSION -BP MEDS INDICATED -OBTAIN PIH LABS
[2021-06-14] MEDS ORDERED: hydrALAZINE 20 MG/1 ML INJ IV PRN (19:16)
[2021-06-14 19:50] LABS: Basophils # (Auto) 0.2 K/mm3 (0.0-0.1); Basophils % (Auto) 2.1 % (0.0-1.8); Eosinophils # (Auto) 0.3 K/mm3 (0.0-0.4); Eosinophils % (Auto) 3.1 % (0.0-4.3); Hemoglobin 9.1 gm/dl (10.1-14.3); Lymphocytes # (Auto) 1.8 K/mm3 (1.2-5.4); Lymphocytes % (Auto) 17.2 % (13.4-35.0); Mean Corpuscular HGB Conc 34 % (30-34); Mean Corpuscular Volume 90 fl (79-97); Monocytes # (Auto) 0.5 K/mm3 (0.0-0.8); Monocytes % (Auto) 4.6 % (0.0-7.3); Platelet Count 222 K/mm3 (140-440); Red Cell Distribution Width 13.9 % (13.2-15.2)
[2021-06-14] MEDS: oxyCODONE /ACETAMINOPHEN 5-325MG TAB PO PRN ×2 (19:58→23:58)
[2021-06-14 20:02] LABS: Alanine Aminotransferase 15 units/L (7-56); Albumin 3.1 g/dL (3.9-5); Blood Urea Nitrogen 8 mg/dL (7-17); Calcium 8.6 mg/dL (8.4-10.2); Hemolysis Index 1
[2021-06-14 20:03] LABS: BUN/Creatinine Ratio 13
[2021-06-14] MEDS ORDERED: LACTATED RINGERS 1,000 ML ONE (20:37)
[2021-06-14] MEDS: MAGNESIUM SULFATE 40GM/1000ML 40 GM/1,000 ML BAG IV SCH (21:19)
[2021-06-14 22:00] LABS: Bilirubin,Urine NEG (Negative); Blood,Urine NEG (Negative); Color,Urine Straw (Yellow); Protein,Urine <15 mg/dL mg/dL (Negative); Urobilinogen,Urine < 2.0 mg/dL (<2.0)
[2021-06-14 22:01] LABS: Mucus,Urine FEW /HPF; RBC,Urine < 1.0 /HPF (0.0-6.0); WBC,Urine < 1.0 /HPF (0.0-6.0)
[2021-06-15] MEDS: oxyCODONE /ACETAMINOPHEN 5-325MG TAB PO PRN (05:52)
[2021-06-15] MEDS: ACETAMINOPHEN 325 MG TAB PO PRN ×3 (08:12→18:22)
[2021-06-15] MEDS: IBUPROFEN 600 MG TAB PO PRN ×3 (08:35→20:55)
[2021-06-15] MEDS: SIMETHICONE 80 MG CHEW TAB PO PRN ×3 (08:35→20:57)
--- NOTE | 2021-06-15 09:04 | Progress Note ---
Assessment and Plan A: 31 y.o. s/p , PPD # 4, gHTN vs. Pre E. P: Continue to monitor blood pressure. Continue to monitor I&O's. Anti-hypertensives as ordered. Continue with magnesium infusion. Pain medication to be administered as ordered. Subjective - Subjective Date of service: 06/15/21 Principal diagnosis: s/p , pre eclampsia Patient reports: appetite normal, voiding normally, pain poorly controlled (Sta tato that she is having "severe back pain.") : doing well Objective - Vital Signs Latest vital signs: Vital Signs Temp Pulse Resp BP BP Pulse Ox Pulse Ox 06/15/21 09:02 84 99 06/15/21 08:57 80 100 06/15/21 08:53 90 147/86 06/15/21 08:51 92 H 99 06/15/21 08:47 103 H 98 06/15/21 08:42 94 H 99 06/15/21 08:36 88 99 06/15/21 08:32 92 H 99 06/15/21 08:27 98 H 98 06/15/21 08:23 95 H 147/92 06/15/21 08:22 94 H 98 06/15/21 08:17 88 98 06/15/21 08:12 85 100 06/15/21 08:06 94 H 97 06/15/21 08:02 98 H 98 06/15/21 07:57 86 98 06/15/21 07:55 98.3 F 16 06/15/21 07:54 86 150/92 06/15/21 07:52 92 H 98 06/15/21 07:47 94 H 98 06/15/21 07:42 92 H 97 06/15/21 07:37 94 H 98 06/15/21 07:31 86 98 06/15/21 07:26 85 97 06/15/21 07:24 83 152/91 06/15/21 07:22 96 H 98 06/15/21 07:17 96 H 97 06/15/21 07:12 88 99 06/15/21 07:07 92 H 99 06/15/21 07:02 92 H 98 06/15/21 07:00 11 L 100 06/15/21 06:57 97 H 98 06/15/21 06:54 85 153/95 06/15/21 06:52 89 99 06/15/21 06:47 85 97 06/15/21 06:41 88 98 06/15/21 06:36 94 H 97 06/15/21 06:31 92 H 98 06/15/21 06:26 90 98 06/15/21 06:23 86 146/84 06/15/21 06:21 90 97 06/15/21 06:16 92 H 97 06/15/21 06:11 87 97 06/15/21 06:06 92 H 99 06/15/21 06:01 97 H 99 06/15/21 05:56 92 H 98 06/15/21 05:53 91 H 141/80 06/15/21 05:51 92 H 99 06/15/21 05:48 93 H 154/87 06/15/21 05:46 98 H 95 06/15/21 05:41 90 97 06/15/21 05:36 95 H 97 06/15/21 05:31 86 98 06/15/21 05:26 104 H 97 06/15/21 05:23 82 138/79 06/15/21 05:21 89 99 06/15/21 05:16 79 97 06/15/21 05:11 79 97 06/15/21 05:08 77 108/57 06/15/21 05:06 76 97 06/15/21 05:01 77 97 06/15/21 05:00 12 99 06/15/21 04:56 78 97 06/15/21 04:53 77 106/58 06/15/21 04:51 76 97 06/15/21 04:46 78 97 06/15/21 04:41 76 97 06/15/21 04:38 75 101/56 06/15/21 04:36 74 97 06/15/21 04:31 75 97 06/15/21 04:26 76 97 06/15/21 04:23 71 110/65 06/15/21 04:21 76 97 06/15/21 04:16 76 97 06/15/21 04:11 82 98 06/15/21 04:08 79 131/75 06/15/21 04:06 76 98 06/15/21 04:01 82 97 06/15/21 03:56 80 97 06/15/21 03:53 78 134/74 10/21/21 03:51 82 97 21/21 03:46 77 97 06/15/ 03:41 77 97 06/15/21 03:38 76 124/70 06/15/21 03:36 70 97 06/15/ 03:31 76 97 21 03:26 78 97 06/15/21 03:23 80 121/70 06/15/21 03:21 78 97 06/15/21 03:16 76 97 06/15/21 03:11 74 97 06/15/21 03:08 74 119/64 06/15/21 03:06 79 97 06/15/21 03:01 77 97 06/15/21 03:00 13 100 06/15/21 02:56 79 96 06/15/21 02:53 78 117/66 06/15/21 02:51 77 97 06/15/21 02:46 76 97 06/15/21 02:41 75 97 06/15/21 02:38 78 124/74 06/15/21 02:36 75 97 06/15/21 02:31 77 96 06/15/21 02:26 81 97 06/15/21 02:23 78 122/74 06/15/21 02:21 78 97 06/15/21 02:16 79 97 06/15/21 02:11 88 98 06/15/21 02:08 83 134/88 06/15/21 02:06 94 H 98 06/15/21 02:01 92 H 97 06/15/21 01:56 94 H 97 06/15/21 01:53 80 132/83 06/15/21 01:51 89 98 06/15/21 01:46 86 97 06/15/21 01:41 87 98 06/15/21 01:38 83 133/88 06/15/21 01:36 90 97 06/15/21 01:31 83 97 06/15/21 01:26 89 97 06/15/21 01:23 83 133/86 06/15/21 01:21 82 98 21 01:16 88 97 06/15/21 01:11 87 98 06/15/21 01:08 85 136/82 06/15/21 01:06 95 H 98 06/15/21 01:01 86 98 06/15/21 01:00 12 99 06/15/21 00:56 88 98 06/15/21 00:53 79 132/77 06/15/21 00:51 88 98 06/15/21 00:46 87 98 06/15/21 00:41 90 98 06/15/21 00:38 91 H 138/83 06/15/21 00:36 88 98 06/15/21 00:31 92 H 98 06/15/21 00:26 89 98 06/15/21 00:23 84 136/74 06/15/21 00:21 89 98 06/15/21 00:16 91 H 98 06/15/21 00:11 88 98 06/15/21 00:08 92 H 146/77 06/15/21 00:06 92 H 98 06/15/21 00:01 100 H 97 2021 23:56 101 H 98 2021 23:53 92 H 136/78 2021 23:51 93 H 97 20/21 23:46 106 H 97 2021 23:41 101 H 98 20/21 23:38 95 H 135/73 20/21 23:36 95 H 98 20/21 23:31 91 H 98 20/21 23:26 93 H 98 20/21 23:23 84 141/75 20/21 23:21 99 H 98 20/21 23:16 98 H 99 20/21 23:11 101 H 98 20/21 23:08 93 H 136/74 20/21 23:06 88 98 20/21 23:01 92 H 97 20/21 23:00 12 98 98 20/21 22:56 91 H 99 20/21 22:53 87 145/76 93 20/21 22:51 99 H 96 20/21 22:46 103 H 96 20/21 22:41 101 H 97 20/21 22:38 96 H 159/85 20/21 22:36 97 H 157/78 98 1020/21 22:31 102 H 98 20/21 22:26 105 H 98 1020/21 22:21 102 H 97 20/21 22:16 110 H 97 10/20/21 22:11 112 H 97 10/20/21 22:08 100 H 157/78 10/20/21 22:06 95 H 98 10/20/21 22:01 102 H 98 10/20/21 21:56 124 H 97 10/20/21 21:53 109 H 174/88 10/20/21 21:51 109 H 97 10/20/21 21:46 96 H 98 10/20/21 21:41 92 H 98 10/20/21 21:38 99 H 161/87 10/20/21 21:36 107 H 98 10/20/21 21:31 104 H 97 10/20/21 21:26 105 H 99 10/20/21 21:23 112 H 160/86 10/20/21 21:21 110 H 99 10/20/21 21:18 112 H 169/88 10/20/21 21:16 118 H 98 10/20/21 21:11 102 H 98 10/20/21 21:08 93 H 169/88 10/20/21 21:06 102 H 98 10/20/21 21:01 104 H 98 10/20/21 20:56 107 H 98 10/20/21 20:51 109 H 99 10/20/21 20:49 80 166/86 10/20/21 20:46 92 H 98 10/20/21 20:41 83 98 10/20/21 20:36 96 H 98 10/20/21 20:31 77 98 10/20/21 20:26 82 98 10/20/21 20:21 70 98 10/20/21 20:18 69 165/96 10/20/21 20:16 77 97 10/20/21 20:11 63 99 10/20/21 20:10 62 167/93 10/20/21 20:06 66 98 10/20/21 20:02 102 H 93 10/20/21 20:01 76 97 10/20/21 19:56 69 98 10/20/21 19:55 66 167/88 10/20/21 19:51 72 97 10/20/21 19:46 66 97 10/20/21 19:41 62 98 10/20/21 19:40 74 176/91 10/20/21 19:36 81 96 10/20/21 19:31 64 97 10/20/21 19:26 63 98 06/14/21 19:25 64 163/81 06/14/21 19:21 73 99 06/14/21 19:16 69 98 06/14/21 19:14 98 06/14/21 19:11 74 99 06/14/21 19:10 83 165/93 06/14/21 19:06 76 97 06/14/21 19:01 72 99 06/14/21 18:56 69 98 06/14/21 18:55 62 164/89 06/14/21 18:51 68 98 06/14/21 18:46 64 98 06/14/21 18:45 98.2 F 64 18 177/93 177/93 98 06/14/21 18:41 65 98 Intake and Output 06/14/21 06/15/21 06/15/21 22:59 06:59 14:59 Output Total 350 2150 Balance -350 -2150 Output: Urine 350 2150 Indwelling Catheter 350 2150 Other: Total, Output Amount 350 850 Weight 189 lb 10.931 oz - Exam Narrative Exam: Spoke with patient and SO regarding the plan of care. We also discussed pre eclampsia. Pt is very anxious about her blood pressures and the magnesium infusion. I explained that the providers and nurses are watching her blood pressures very closely at this time. We also discussed if needed, we will increase her dose of Labetalol and continue to watch her blood pressures. She currently denies SAVAGE, blurred vision, spots before her eyes, chest pain, shortness of breath, and upper abdominal pain. We discussed should any of these symptoms occur she will need to notify the RN immediately. Breasts: Present: deferred Cardiovascular: Present: Normal S1, Normal S2 Lungs: Present: Clear to auscultation Abdomen: Present: normal appearance, soft Vulva: both: normal Uterus: Present: normal Extremities: Present: normal Deep Tendon Reflex Grade: Normal +2 - Labs Labs: Abnormal lab results 06/14/21 06/14/21 06/15/21 Range/Units 18:42 18:42 08:12 RBC 3.00 L (3.65-5.03) M/mm3 Hgb 9.1 L (10.1-14.3) gm/dl Hct 27.0 L (30.3-42.9) % Baso % (Auto) 2.1 H (0.0-1.8) % Baso # (Auto) 0.2 H (0.0-0.1) K/mm3 Seg Neutrophils % 73.0 H (40.0-70.0) % Sodium 134 L (137-145) mmol/L Magnesium 4.80 H (1.7-2.3) mg/dL Alkaline Phosphatase 138 H (35-129) units/L Total Protein 5.9 L (6.3-8.2) g/dL Albumin 3.1 L (3.9-5) g/dL
[2021-06-15] MEDS ORDERED: LACTATED RINGERS 1,000 ML ONE (11:24)
[2021-06-15] MEDS: MAGNESIUM SULFATE 40GM/1000ML 40 GM/1,000 ML BAG IV SCH (16:43)
[2021-06-16] MEDS: ACETAMINOPHEN 325 MG TAB PO PRN (00:55)
[2021-06-16] MEDS: IBUPROFEN 600 MG TAB PO PRN (04:00)
--- NOTE | 2021-06-16 08:38 | Event Note ---
Date: 06/16/21 BP improved and in normal range on Labetalol 300bid. Will d/c home on this this pm if bps remain stable. s/p Magesium x 24 hours.
--- NOTE | 2021-06-16 09:20 | Progress Note ---
Assessment and Plan Pt reports back pain. Pt states, "feels like a muscle soreness". Denies SAVAGE, vision changes, chest pain, and RUQ pain. Reports desires for discharge home. VSSAF s/p increased Labetalol dosage; POC d/w pt and SO. Questions encouraged and addressed. Pt verbalizes understanding and agrees to POC. Anticipate dc home if BP remains stable today. Monitor pt closely and notify provider with any changes in status. Dr. Trammell aware. - Patient Problems (1) hypertension Status: Acute Subjective - Subjective Date of service: 06/16/21 Principal diagnosis: PP Day #4, s/p , pre-eclampsia Patient reports: appetite normal, voiding normally, pain well controlled, ambulating normally Objective - Vital Signs Latest vital signs: Vital Signs Temp Pulse Resp BP BP Pulse Ox Pulse Ox 06/16/21 08:27 98.8 F 71 16 136/80 98 06/16/21 04:56 97.9 F 84 18 121/66 96 06/16/21 04:00 18 97 06/16/21 00:55 18 98 06/16/21 00:20 97.8 F 81 18 129/83 98 98 06/16/21 00:01 84 99 06/15/21 23:54 79 99 06/15/21 23:53 78 133/84 06/15/21 23:49 77 99 06/15/21 23:44 80 99 06/15/21 23:39 82 99 06/15/21 23:34 75 99 06/15/21 23:29 81 100 06/15/21 23:24 78 99 06/15/21 23:23 77 141/80 06/15/21 23:19 87 100 06/15/21 23:14 76 100 06/15/21 23:09 88 99 06/15/21 23:04 83 99 06/15/21 23:00 86 88 06/15/21 22:59 84 100 06/15/21 22:56 78 161/94 06/15/21 22:54 74 161/94 99 06/15/21 22:49 80 99 06/15/21 22:44 76 98 06/15/21 22:39 72 99 06/15/21 22:34 82 100 06/15/21 22:29 91 H 86 10/21/21 22:28 83 87 1021/21 22:23 74 137/92 1021/21 22:22 80 99 21/21 22:17 79 100 21/21 22:12 83 99 21/21 22:07 91 H 100 21/21 22:02 86 100 21/21 21:57 78 100 21/21 21:54 70 151/84 21/21 21:52 73 99 21/21 21:47 76 99 21/21 21:42 90 92 21/21 21:37 86 99 21/21 21:32 79 99 21/21 21:27 77 97 21/21 21:23 76 142/85 21/21 21:22 81 98 21/21 21:17 80 98 21/21 21:12 82 98 21/21 21:10 99 99 21/21 21:07 90 98 21/21 21:02 87 100 06/15/21 20:58 98.2 F 84 18 167/92 99 21/21 20:57 91 H 100 06/15/21 20:55 18 21/21 20:53 83 167/92 21/21 20:52 89 100 21/21 20:47 91 H 99 21/21 20:42 89 100 21/21 20:37 87 100 21/21 20:32 94 H 99 21/21 20:27 87 100 21/21 20:24 82 164/98 21/21 20:22 97 H 98 21/21 20:17 83 100 21/21 20:12 82 100 21/21 20:07 82 100 21/21 20:02 87 100 21/21 19:56 83 99 21/21 19:53 82 134/72 21/21 19:51 80 99 21/21 19:47 80 98 21/21 19:42 78 98 21/21 19:37 77 98 21/21 19:32 75 99 21/21 19:27 75 99 21/21 19:23 71 140/67 21/21 19:22 78 99 10/21/21 19:17 80 99 06/15/21 19:12 83 99 06/15/21 19:07 79 99 06/15/21 19:02 75 99 06/15/21 18:57 79 100 06/15/21 18:53 76 119/70 06/15/21 18:52 79 100 06/15/21 18:47 77 99 06/15/21 18:42 87 99 06/15/21 18:37 78 99 06/15/21 18:32 79 100 06/15/21 18:26 82 99 06/15/21 18:24 81 158/93 06/15/21 18:22 91 H 99 06/15/21 18:17 79 100 06/15/21 18:12 85 98 06/15/21 18:06 90 100 06/15/21 18:02 98 H 99 06/15/21 17:57 92 H 99 06/15/21 17:53 80 121/70 06/15/21 17:52 83 99 06/15/21 17:47 87 99 06/15/21 17:42 83 99 06/15/21 17:37 89 99 06/15/21 17:32 85 100 06/15/21 17:27 91 H 99 06/15/21 17:24 81 155/87 06/15/21 17:22 94 H 99 06/15/21 17:17 98 H 100 06/15/21 17:12 99 H 98 06/15/21 17:07 92 H 99 06/15/21 17:02 95 H 100 06/15/21 17:00 97.7 F 15 06/15/21 16:57 86 99 06/15/21 16:54 83 152/86 06/15/21 16:52 85 98 06/15/21 16:47 89 98 06/15/21 16:42 87 100 06/15/21 16:37 104 H 99 06/15/21 16:32 84 99 06/15/21 16:27 100 H 100 06/15/21 16:24 90 152/91 06/15/21 16:22 89 99 06/15/21 16:17 86 100 06/15/21 16:12 90 100 06/15/21 16:07 88 100 06/15/21 16:02 91 H 99 06/15/21 15:57 87 100 06/15/21 15:53 91 H 134/89 06/15/21 15:52 86 100 06/15/21 15:47 86 99 06/15/21 15:42 90 99 06/15/21 15:36 75 97 06/15/21 15:31 77 98 06/15/21 15:26 73 98 06/15/21 15:23 73 132/77 06/15/21 15:21 74 99 06/15/21 15:16 78 100 06/15/21 15:11 75 99 06/15/21 15:06 73 99 06/15/21 15:01 84 99 06/15/21 14:56 85 100 06/15/21 14:53 82 136/82 06/15/21 14:51 80 100 06/15/21 14:46 78 100 06/15/21 14:41 84 99 06/15/21 14:36 79 100 06/15/21 14:31 94 H 99 06/15/21 14:26 87 99 06/15/21 14:23 73 147/83 06/15/21 14:21 86 99 06/15/21 14:16 87 100 06/15/21 14:11 80 100 06/15/21 14:06 83 99 06/15/21 14:01 86 100 06/15/21 13:56 84 100 06/15/21 13:53 82 137/86 06/15/21 13:51 86 100 06/15/21 13:46 83 99 06/15/21 13:41 80 100 06/15/21 13:40 97.9 F 20 06/15/21 13:36 84 100 06/15/21 13:31 77 100 06/15/21 13:26 78 116/68 100 06/15/21 13:23 85 122/73 06/15/21 13:21 87 98 06/15/21 13:17 75 99 06/15/21 13:12 79 99 06/15/21 13:07 72 99 06/15/21 13:01 76 99 06/15/21 12:57 75 99 06/15/21 12:53 72 120/67 06/15/21 12:51 73 98 06/15/21 12:47 77 99 06/15/21 12:42 81 99 06/15/21 12:37 89 97 06/15/21 12:31 79 99 06/15/21 12:27 79 99 06/15/21 12:23 77 137/91 06/15/21 12:22 82 99 06/15/ 12:17 86 99 06/15/21 12:12 77 98 06/15/21 12:07 82 98 06/15/21 12:02 86 99 06/15/21 11:57 87 98 06/15/21 11:53 82 144/92 06/15/ 11:52 84 99 06/15/ 11:47 86 99 06/15/21 11:42 79 99 06/15/21 11:37 81 99 06/15/21 11:32 94 H 88 06/15/21 11:31 94 H 88 06/15/21 11:26 82 99 06/15/21 11:23 79 116/74 06/15/21 11:22 82 99 06/15/21 11:16 93 H 98 06/15/21 11:12 74 98 06/15/21 11:07 75 98 06/15/21 11:02 76 97 06/15/21 10:57 77 97 06/15/21 10:53 75 106/58 06/15/ 10:52 75 96 06/15/ 10:46 76 96 06/15/ 10:42 76 96 06/15/21 10:37 76 95 06/15/21 10:32 77 96 06/15/ 10:27 77 96 06/15/ 10:23 76 99/63 06/15/21 10:22 78 96 06/15/21 10:17 78 97 06/15/ 10:12 77 98 06/15/21 10:07 80 98 06/15/ 10:01 89 98 06/15/21 09:56 98 H 97 06/15/21 09:53 96 H 123/77 06/15/21 09:52 85 131/78 98 06/15/21 09:47 86 98 06/15/21 09:42 80 98 06/15/21 09:36 80 97 06/15/21 09:32 77 97 06/15/21 09:27 77 98 06/15/21 09:23 77 131/78 21 09:22 81 98 Intake and Output 06/15/21 06/16/21 06/16/21 23:59 07:59 15:59 Intake Total 970 300 Output Total 2200 250 100 Balance -1230 50 -100 Intake: IV 970 MAGNESIUM SULFATE 40GM/ 970 1000ML 40 gm In 1,000 ml @ 2 GM/HR 50 mls/hr IV DIRECT MERLY Rx#:[id number] Oral 300 Output: Urine 2200 250 100 Indwelling Catheter 1650 Void 550 250 100 Other: Total, Intake Amount 100 Total, Output Amount 550 250 100 - Exam Breasts: Present: normal Cardiovascular: Present: Regular rate Lungs: Present: Normal air movement Abdomen: Present: normal appearance, soft Vulva: both: normal Uterus: Present: normal, firm, fundal height below umbilicus Extremities: Present: edema (2+pitting BLE) Comments: back observed and palpated- unremarkeable - Labs Labs: Abnormal lab results 06/15/21 Range/Units 18:02 Magnesium 5.50 H (1.7-2.3) mg/dL
[2021-06-16] MEDS: oxyCODONE /ACETAMINOPHEN 5-325MG TAB PO PRN ×2 (09:39→14:56)
[2021-06-16 12:14] VITALS: BP 115/73
--- NOTE | 2021-06-16 14:09 | Discharge Summary ---
Providers - Providers Date of Admission: 06/14/21 18:10 Date of discharge: 06/16/21 Attending physician: SYDNIE BLAKELY Primary care physician: SYDNIE BLAKELY Hospitalization Reason for admission: other (pp htn) Hospital course: Pt readmitted due to elevated blood pressures. Pt had MgSO4 and oral bp meds. Pt hospital course was not complicated. She was d/c home when bp range were controlled. She is to follow in the office in one week and check blood pressures prior to each dose of medication. She was advised that if blood pressure is less than 120/80, she is to hold the medications. Pt expressed understanding and all questions were addressed and answered. Condition at discharge: Stable Disposition: 01 HOME / SELF CARE / HOMELESS - Discharge Diagnoses (1) hypertension Status: Acute Plan - Discharge Medications Prescriptions: Labetalol HCl [Labetalol 300mg TAB] 300 mg PO BID #60 tablet - Provider Discharge Summary Additional instructions: [] Smoking cessation referral if applicable(refer to patient education folder for contact #) [] Refer to [facility] Booklet Call your doctor immediately for: * Fever > 100.5 * Heavy vaginal bleeding ( >1 pad per hour) * Severe persistent headache * Shortness of breath * Reddened, hot, painful area to leg or breast * Drainage or odor from incision. * Keep incision clean and dry at all times and follow doctor's instructions regarding bathing/showering - Follow up plan Follow up: SYDNIE BLAKELY MD [Primary Care Provider] - 7 Days Forms: [facility] Discharge Summary
== END 2021-06-16 15:30 | disposition home or self-care (01) | DRG 776 ==
LOC: UNDOADMIN 17:33 → 3A 17:33 → LD 18:10 → OB 06-16 00:43
PROVIDERS: ADMIT Obstetrics & Gynecology; ATTEND Obstetrics & Gynecology
DX: O16.5 Unspecified maternal hypertension, complicating the puerperium (principal); Z87.891 Personal history of nicotine dependence
CPT/HCPCS: 36415; 80053; 81001; 83735; 85025; G0378; J0360; J3475; J7120